=== PATIENT | male | born 1955 | race Two or more races ===

== ENCOUNTER 2016-07-22 16:36 | Observation (INO) | payer OTHER ==
[2016-07-22 17:30] LABS: LEUKOCYTES/URINE NEG (NEGATIVE); NITRITE/URINE NEG (NEGATIVE); URINE OCCULT BLOOD 2+ (NEG/TRACE)
[2016-07-22] MEDS ORDERED: NS 1,000 ML IV ONE ×2 (17:47→19:28)
[2016-07-22] MEDS ORDERED: HYDROmorphone 1 MG INJECTION IV ONE ×2 (17:47→19:23)
[2016-07-22] MEDS ORDERED: ONDANSETRON HCL 4 MG/2 ML VIAL IV ONE (17:47)
--- NOTE | 2016-07-22 17:49 | EDPRACDOC ---
- General Information Chief Complaint: Male Urogenital Problems Stated Complaint: ? 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 8/10. NAUSEA AND VOMITING. NO DYSURIA. NO HEMATURIA. Pain Began: Reports: Spontaneous Pain Quality: Reports: [facility] Past Medical History - History Reviewed Yes Nurses notes reviewed and agree except as marked - Patient Medical History GI/ History: Reports: Kidney Stones Psychological History: Denies: Depression - Social Medical History Smoking Status: Never smoker EDM Review of Systems - Review of Systems ROS Negative Except as Marked: Yes All systems reviewed and were negative except as marked - Physical Exam Constitutional: Alert (Awake), No apparent distress Oriented to: Time, Person, Place Last recorded Vital Signs: Last Vital Signs Temp 98.3 F 07/22/16 17:09 Pulse 66 07/22/16 17:09 Resp 20 07/22/16 17:09 BP 164/75 07/22/16 17:09 Pulse Ox 98 07/22/16 17:09 Oxygen Pulse Oxygen Saturation 98 O2 Device Room Air Oxygen Flow Rate Fraction of Inspired Oxygen ( FIO2) - HEENT Head: Normal ( normocephalic) Eye Exam: Normal (PERRL, EOMI, Sclera white) Oropharynx: Normal (Pharynx:Moist without exudate,Gums-no swelling) Nose: No Symptoms Reported (septum midline) Neck: Normal (FROM, trachea at midline) - Respiratory/Cardiovascular Respiratory: Normal - CTA (BBS clear to auscultation without adventitious sounds ) Cardiovascular: Normal (RRR without murmur, gallop or rub) - GI Auscultation: Normal (NABS) Palpation: Normal (Soft,No rebound or guarding, non distended) Tenderness: Moderate, LLQ. negative: Guarding, Rebound, Rigidity Jones's Sign: Negative - Musculoskeletal Back: CVA Tenderness (LEFT) Extremities: Normal (Normal tone, Pulses 2+ No cyanosis or edema, FROM) - Integumentary Skin: Warm, Dry, Pale Lymphatics: Normal (no adenopathy) - Neurologic Memory Impaired: Normal Motor Function: Normal (Normal tone, Pulses 2+ No cyanosis or edema, FROM) Cranial Nerve: Normal (CN II-X11 intact sensation, strength 5/5) Cerebellar: Normal Mood Description: Normal Perception: Normal - Results 07/22/16 18:20 07/22/16 18:20 Urine Color Yellow 07/22/16 17:10 Urine Clarity Clear 07/22/16 17:10 Urine pH 5.0 (5.0-8.0) 07/22/16 17:10 Ur Specific [place] 1.025 (1.003-1.035) 07/22/16 17:10 Urine Protein Neg (NEG/TRACE) 07/22/16 17:10 Urine Glucose (UA) Neg (NEGATIVE) 07/22/16 17:10 Urine Ketones Neg (NEGATIVE) 07/22/16 17:10 Urine Occult Blood 2+ (NEG/TRACE) H 07/22/16 17:10 Urine Nitrite Neg (NEGATIVE) 07/22/16 17:10 Urine Bilirubin Neg (NEGATIVE) 07/22/16 17:10 Urine Urobilinogen <2.0 MG/DL (0-1) 07/22/16 17:10 Ur Leukocyte Esterase Neg (NEGATIVE) 07/22/16 17:10 Urine RBC 10-20 (0-2) H 07/22/16 17:10 Urine WBC 2-5 (0-2) H 07/22/16 17:10 Ur Epithelial Cells Occ 07/22/16 17:10 Urine Mucus Sm amt (NEG/OCC) 07/22/16 17:10 Lab Results 07/22/16 17:10 Urine Color Yellow Urine Clarity Clear Urine pH 5.0 Ur Specific [place] 1.025 Urine Protein Neg Urine Glucose (UA) Neg Urine Ketones Neg Urine Occult Blood 2+ H Urine Nitrite Neg Urine Bilirubin Neg Urine Urobilinogen <2.0 Ur Leukocyte Esterase Neg Urine RBC 10-20 H Urine WBC 2-5 H Ur Epithelial Cells Occ Urine Mucus Sm amt - Departure Yes I personally saw and evaluated the patient. Disposition: Admit IP To This Hospital Condition: Stable Final Diagnosis: Left ureteral calculus Decision to Admit Time: 19:43 Decision to admit date: 07/22/16 Decision to admit: from ED - Physician Consulted Urology Time Called: 19:43 Provider Called: Alberto Rose Time Insole Cementer Returned Call: 19:43
[2016-07-22 18:30] LABS: AUTOMATED BASOPHIL 0.5 % (0-2); AUTOMATED EOSINOPHIL 0.3 % (0-5); AUTOMATED LYMPH 7.7 % (17-44); AUTOMATED MONOCYTE 6.8 % (3-10); AUTOMATED NEUTROPHIL 84.7 % (45-76); MPV 8.6 fL (7.4-10.4)
[2016-07-22 18:39] LABS: BLOOD UREA NITROGEN 17 MG/DL (9-20); CALCIUM 9.4 MG/DL (8.4-10.2); CALCULATED OSMOLALITY 268 MOs/Kg (270-290); CHLORIDE 102 mEq/L (98-107); GLUCOSE 99 MG/DL (70-99); SODIUM LEVEL 138 mEq/L (137-146); TOTAL PROTEIN 7.8 G/DL (6.3-8.2)
--- NOTE | 2016-07-22 18:47 | DIRPT ---
CLINICAL DATA: Left flank pain EXAM: CT ABDOMEN AND PELVIS WITHOUT CONTRAST TECHNIQUE: Multidetector CT imaging of the abdomen and pelvis was performed following the standard protocol without oral or intravenous contrast material administration. COMPARISON: None. FINDINGS: Lower chest: Lung bases are clear. Hepatobiliary: There is a focal area of decreased attenuation in the posterior segment right lobe of the liver measuring 6 x 5 mm, probably either a small cyst or hamartoma. No other focal liver lesions are identified on this noncontrast enhanced study. The gallbladder wall is not thickened. There is no appreciable biliary duct dilatation. Pancreas: No pancreatic mass or inflammatory focus. Spleen: No splenic lesions are identified beyond a tiny splenic granuloma medially. Adrenals/Urinary Tract: Adrenals appear normal bilaterally. There is a cyst arising from the anterior upper to mid left kidney measuring 2.4 x 1.7 cm. The left kidney is diffusely edematous. There is moderate hydronephrosis on the left. There is no hydronephrosis or mass on the right. There is no intrarenal calculus on either side. There is no demonstrable ureteral calculus on the right. On the left, there is a calculus in the left ureter at the mid sacral level measuring 6 x 6 mm. There is diffuse ureteral edema in the area this calculus with ureterectasis proximal to this calculus on the left. No other calculi identified in the ureters. Urinary bladder is midline with wall thickness within normal limits. Stomach/Bowel: There are multiple sigmoid diverticula without diverticulitis. There is no bowel wall or mesenteric thickening. No bowel obstruction. No free air or portal venous air. Vascular/Lymphatic: There is atherosclerotic calcification in the aorta. There is no demonstrable abdominal aortic aneurysm. There is also calcification each common iliac artery. There is no demonstrable adenopathy in the abdomen or pelvis. Reproductive: There are small prostatic calculi. Prostate and seminal vesicles appear within normal limits. No pelvic mass or pelvic fluid collection. Other: Appendix appears normal. There is no abscess or ascites in the abdomen or pelvis. Musculoskeletal: There are no blastic or lytic bone lesions. There is no intramuscular or abdominal wall lesion. IMPRESSION: There is a 6 x 6 mm calculus in the left ureter at the mid sacral level. There is hydronephrosis in ureterectasis on the left with extensive perinephric edema on the left. No other ureteral calculi identified. No renal calculi identified on either side. There are small prostatic calculi. No bowel obstruction. No abscess. There are multiple sigmoid diverticula without diverticulitis. Appendix appears normal. Electronically Signed By: Alan Gonzales III, M.D. On: 07/22/2016 18:45
[2016-07-22] MEDS ORDERED: ONDANSETRON HCL 4 MG/2 ML VIAL IV PRN (19:54)
[2016-07-22] MEDS ORDERED: HYDROCODONE 5 MG/ACETAMIN 325 MG TAB PO PRN (19:54)
[2016-07-22] MEDS ORDERED: HYDROmorphone 1 MG INJECTION IV PRN ×2 (19:54→20:46)
[2016-07-22] MEDS ORDERED: Levofloxacin 500 mg/100 ml D5W 500 MG/100 ML RTU IV ONE (19:56)
--- NOTE | 2016-07-22 21:10 | HISTPHYS ---
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 STATES THAT HE STARTED HAVING SEVERE LEFT FLANK PAIN EARLY THIS MORNING IS SEEN IN THE EMERGENCY ROOM WHERE A CT SCAN WAS CARRIED OUT WHICH SHOWS HE HAS A 6 MM STONE IN THE LEFT MID URETER CAUSING SIGNIFICANT HYDRONEPHROSIS---- PATIENT WAS HAVING QUITE A BIT OF PAIN HE WAS HOSPITALIZED FOR PAIN RELIEF--- IV HYDRATION AND FURTHER UROLOGICAL EVALUATION-- -- MOST LIKELY HE IS GOING TO NEED A CYSTOSCOPY LEFT URETEROSCOPY LASER LITHOTRIPSY FOLLOWED BY PLACEMENT OF A DOUBLE-J STENT-- PATIENT HAS STILL KIDNEY STONE IN THE PAST ABOUT 5 YEARS AGO - Past Medical History GI/ History: Reports: Kidney Stones Psychological History: Denies: Depression - Allergies Allergies No Known Allergies Allergy (Verified 07/22/16 20:43) - Medications Home Medications Unknown Pain Medication 0 mg PO .SEE COMMENTS 07/22/16 - Social History Smoking Status: Never smoker - Exam Vital Signs: Temperature: 97.7 F (07/22/16 20:46) HR: 77 (07/22/16 20:46) RR: 20 (07/22/16 20:46) BP: 148/71 (07/22/16 20:46) Pulse Ox: 93 (07/22/16 20:46) General: Alert, Oriented x3 HEENT: Normal Respiratory: Normal - CTA Cardiovascular: Regular rate Gastrointestinal: Soft, Bowel Sounds (NORMAL) Genitourinary Exam: Other (LEFT CVA IS TENDER), Penis (NORMAL), Testicle (NORMAL ), Scrotum (NORMAL), Rectal Exam (MILDLY ENLARGED BPH) Musculoskeletal/Extremities: Normal pulses Skin: Warm,Dry and Intact Neurological: Normal Steady Gait Psych/Mental Status: Appropriate - Labs Result Diagrams: 07/22/16 18:20 07/22/16 18:20 ADMISSION FOR OBSERVATION AND IV HYDRATION PAIN RELIEF BY IV NARCOTICS NEEDED PROPHYLACTIC IV ANTIBIOTICS IN THE MORNING WE WILL DO CYSTOSCOPY LEFT URETEROSCOPY LASER LITHOTRIPSY AND PLACEMENT OF A DOUBLE-J STENT THIS WAS DISCUSSED WITH THE PATIENT HE UNDERSTANDS AND AGREES
[2016-07-22] MEDS: D5W/LR 1,000 ML IV SCH (22:18)
[2016-07-23 04:06] VITALS: BMI 28.5
[2016-07-23] MEDS: D5W/LR 1,000 ML IV SCH (08:19)
[2016-07-23] MEDS ORDERED: MEPERIDINE 25 MG/ML TUBEX IV PRN (11:37)
[2016-07-23] MEDS ORDERED: PROMETHAZINE 25 MG/ML VIAL IV PRN ×2 (11:37)
[2016-07-23] MEDS ORDERED: LABETALOL 20 MG/4 ML SYRINGE IV PRN (11:37)
[2016-07-23] MEDS ORDERED: ONDANSETRON HCL 4 MG/2 ML VIAL IV PRN (11:37)
[2016-07-23] MEDS ORDERED: HYDROmorphone 1 MG INJECTION IV PRN ×3 (11:37→14:35)
[2016-07-23] MEDS ORDERED: FENTANYL 100 MCG/2 ML VIAL IV PRN ×2 (11:37)
[2016-07-23] MEDS ORDERED: ONDANSETRON HCL 4 MG ODT TAB PO PRN (11:37)
[2016-07-23] MEDS ORDERED: hydrALAZINE 20 MG/ML VIAL IV PRN (11:37)
--- NOTE | 2016-07-23 11:38 | SC.ANESPOS ---
[id number], Hemodynamically Stable, Pain Control Adequate Phase I & II Recovery Complete: Yes Apparent Anesthesia Complication: No : N - Vital Signs Blood Pressure: 101/44 Pulse: 67 Resp Rate: 18 O2 Sat: 97 Temp: 98.7 F
--- NOTE | 2016-07-23 11:52 | HIM.ANES ---
Anesthesia Evaluation & Plan - Focused Review of Systems Cardiac History: No: Hx Cardiac Disorders HEENT: No: Other HEENT Problems Gastrointestinal: No: Hx Gastroesophageal Reflux Disease, Hx Gastrointestinal Disorders Neurological/Musculoskeletal: No: Hx Neurological Disorders Psychological: No Hx Depression, No Hx Mental/Emotional Disorders Smoking Status: Never smoker - Focused Physical Exam NPO since: 07/23/16 000 Mallampati: Class III Thyromental Distance: Greater than 3 Dental: Normal - no significant findings Cardiovascular/Chest: Normal Respiratory: Lungs clear Any problems with anesthesia, including nausea and vomiting?: No (States jaw/ teeth were sore after GA prior) Any relatives with a history of Malignant Hyperthermia?: No Does patient have a history of Malignant Hyperthermia?: No Beta Marco given (if appropriate): N/A Other: Problem List Problem Status Onset Left ureteral calculus Acute Allergies Allergy/AdvReac Type Severity Reaction Status Date / Time No Known Allergies Allergy Verified 07/22/16 20:43 Home Medications Medication Instructions Recorded Last Taken Type Unknown Pain Medication 0 mg PO .SEE COMMENTS 07/22/16 Unknown History Height and Weight Patient's height 5 ft 6 in Patient's weight 177 lb 2 oz Weight (Calculated Kilograms) 80.343 BMI 28.5 Vital Signs Temperature 98.7 F 07/23/16 11:38 Pulse Rate 67 07/23/16 11:38 Respiratory Rate 18 07/23/16 11:38 Blood Pressure 101/44 L 07/23/16 11:38 Pulse Oxygen Saturation 97 07/23/16 11:38 - Anesthetic Plan Anesthesia Type: General ASA Class: 2 -: I have examined this patient and reviewed the medical record. The patient has been assessed prior to anesthesia. Risks and benefits of anesthesia and anesthetic technique options have been discussed and all questions answered. The patient accepts the risk and desires me to proceed with the planned anesthetic.
[2016-07-23] MEDS ORDERED: ISOVUE-300 (61%) 50 ML ONE (11:55)
--- NOTE | 2016-07-23 12:57 | HIMOPRPT ---
POSTOPERATIVE DIAGNOSIS: DATE OF PROCEDURE: 07/23/16 PREOPERATIVE DIAGNOSIS: Ureteral Stone with Renal Colic. POSTOPERATIVE DIAGNOSIS: Ureteral Stone with Renal Colic. PROCEDURE PERFORMED: Cystoscopy, LEFT Ureteroscopy, Laser Ablation of Stone, Retrograde Pyelogram and placement of a Double-J stent on the [left] side, [ 24] cm in length [with] a string. ANESTHESIA: General. SURGEON: Alberto Rose MD PROCEDURE IN DETAIL: The patient was taken to the operating room and was given general anesthesia. After that, patient was put in lithotomy position, and was prepped and draped in usual sterile fashion. C-arm and camera was used throughout the procedure as needed. A 23-Bengali cystoscope was introduced in the bladder. Bladder was examined. [There was no evidence of any tumors or stones]. Both ureteral orifices were normally located. Then, a [0.038] guidewire was passed through the [left] ureteral orifice and guided into the area of the renal pelvis bypassing the stone on this side. Then, a balloon dilating catheter was passed over the guidewire and positioned across the area of the intramural ureter. The balloon was inflated to adequate pressure. Pressure in the balloon was maintained for 30 seconds. Balloon was then deflated and removed. Guidewire was left in. Cystoscope was removed and Ureteroscopy was carried out on this side until stone was visualized. A 365 laser fiber was passed and placed in contact with the stone and with the power settings at 8 the stone was nicely pulverized to fine sand like particles. Ureteroscopy was then terminated. Cystoscope was reintroduced over the guidewire and then an open ended catheter was passed over the guidewire and retrograde pyelogram was obtained. Guidewire was then reintroduced and a [6]- Bengali [24]cm double-J stent was passed and positioned, so the upper end was coiled up in the renal pelvis, and lower end was coiled up in the bladder. The string coming out of the urethra was taped to the outside of the penis and held in place with the help of an tapes. Tolerated procedure well. The patient was returned to the recovery room area in satisfactory condition.
[2016-07-23] MEDS ORDERED: Vaccine Screening Complete SCH (13:00)
--- NOTE | 2016-07-23 13:00 | PCM.UROPRO ---
Chief Complaint: PAIN IS MUCH LESS Post-op Assessment: Reports: No new complaints, Feels better, Pain is less, Voiding without difficulty Patient care reviewed: Yes Patient care reviewed and discussed with Nursing - Physical Exam Vital Signs: Temperature: 98.7 F (07/23/16 11:38) HR: 67 (07/23/16 11:38) RR: 18 (07/23/16 11:38) BP: 101/44 (07/23/16 11:38) Pulse Ox: 97 (07/23/16 11:38) General: Alert, Obese HEENT: Normal Respiratory: Normal - CTA Cardiovascular: Regular rate Gastrointestinal: Soft Genitourinary: External Genitalia (NORMAL) Result Diagrams: 07/22/16 18:20 07/22/16 18:20 Plan: DISCHERGE HOME THIS AFTERNOON FINAL DX--LEFT URETERAL STONE WITH OBSTRUCTION CONDITION--STABLE MEDS---CIPRO/LORTAB FOLLOW UP ---WEDNESDAY
[2016-07-23] MEDS ORDERED: D5W/LR 1,000 ML IV SCH (14:34)
[2016-07-23] MEDS ORDERED: KETOROLAC TROMETH 30 MG/ML VIAL IM ONE (15:40)
[2016-07-23] MEDS ORDERED: FENTANYL 100 MCG/2 ML VIAL IV ONE (15:40)
[2016-07-23] MEDS ORDERED: DEXAMETHASONE 4 MG/ML VIAL IV ONE (15:40)
[2016-07-23] MEDS ORDERED: ONDANSETRON HCL 4 MG/2 ML VIAL IV ONE (15:40)
[2016-07-23] MEDS ORDERED: LIDOCAINE 4% 5 ML AMPULE NEB ONE (15:40)
[2016-07-23] MEDS ORDERED: MIDAZOLAM 2 MG/2 ML VIAL IV ONE (15:40)
[2016-07-23] MEDS ORDERED: PROPOFOL 200 MG/20 ML VIAL IV ONE (15:40)
[2016-07-23 16:31] VITALS: BP 138/66; PULSE 62; TEMP 97.8
[2016-07-23] MEDS ORDERED: Levofloxacin 500 mg/100 ml D5W 500 MG/100 ML RTU IV SCH (20:00)
== END 2016-07-23 17:45 | disposition home or self-care (01) ==
LOC: ED 16:36 → PCU 19:54
PROVIDERS: ADMIT Urology; ATTEND Urology
PROC: 0TF78ZZ Fragmentation in Left Ureter, Via Natural or Artificial Opening Endoscopic (ICD-10-PCS; principal; 2016-07-22)
PROC: 0T778DZ Dilation of Left Ureter with Intraluminal Device, Via Natural or Artificial Opening Endoscopic (ICD-10-PCS; 2016-07-22)
PROC: BT1F1ZZ Fluoroscopy of Left Kidney, Ureter and Bladder using Low Osmolar Contrast (ICD-10-PCS; 2016-07-22)
DX: N20.1 Calculus of ureter (principal)
CPT/HCPCS: 36415; 52005; 52356; 74176; 80053; 81001; 83690; 85025; 96361; 96374; 96375; 96376; 99284; C2617; G0378; J1100; J1170; J1885; J1956; J2250; J2405; J3010; J3490